=== PATIENT | female | born 1955 | race Caucasian/White ===

== ENCOUNTER 2020-06-26 07:47 | Outpatient (REF) | payer MEDICARE, SELFPAY ==
--- NOTE | ~2020-06-26 | US_ITS ---
EXAMINATION: US ABDOMEN COMPLETE CLINICAL INFORMATION: Right upper quadrant pain. COMPARISON: CT abdomen and pelvis 09/25/2017. TECHNIQUE: Real-time imaging of the abdominal viscera. FINDINGS: PANCREAS: The head and body of pancreas is homogeneous in echotexture. The tail is obscured by overlying gas. ABDOMINAL AORTA: The proximal, mid, and distal segments are normal in caliber. INFERIOR VENA CAVA: Visualized portions are normal. LIVER: The liver is normal in size. The liver contour is normal. There is diffuse increased echogenicity. No focal hepatic lesion. There is no intrahepatic biliary duct dilatation seen. GALLBLADDER: The gallbladder is physiologically distended. Multiple mobile gallstones are present. No evidence of gallbladder wall thickening or pericholecystic fluid. COMMON BILE DUCT: Normal in caliber measuring 0.5 cm in diameter. RIGHT KIDNEY: Normal. No hydronephrosis. No renal calculi or focal parenchymal lesions. The kidney measures 10.0 cm in maximum dimension. LEFT KIDNEY: Normal. No hydronephrosis. No renal calculi or focal parenchymal lesions. The kidney measures 10.2 cm in maximum dimension. SPLEEN: Normal. The spleen measures 9.0 cm in maximum dimension. FREE FLUID: None. US/US abdomen complete IMPRESSION: Diffusely echogenic liver without focal lesion. The rest of the abdominal ultrasound is unremarkable.
== END 2020-06-26 07:48 | disposition home or self-care (01) ==
LOC: HO.US 07:47
PROVIDERS: Visit Provider Nurse Practitioner Primary Care
DX: R10.11 Right upper quadrant pain (principal)
CPT/HCPCS: 76700

== ENCOUNTER 2021-01-04 08:49 | Outpatient (REF) | payer MEDICARE, SELFPAY ==
--- NOTE | ~2021-01-04 | MM_ITS ---
EXAMINATION: MM SCREENING DIGITAL BREAST TOMOSYNTHESIS, BILATERAL CLINICAL INFORMATION: Screening. Asymptomatic. The lifetime risk of breast cancer based on the Tyrer-Cuzick Model is 8%. COMPARISON: Mammography: 12/30/2019, 12/24/2018, 11/25/2017 TECHNIQUE: Digital breast tomosynthesis is performed in both the craniocaudal and mediolateral oblique views along with computer-aided detection (CAD). Synthesized 2D images are generated from the tomosynthesis. FINDINGS: There are scattered areas of fibroglandular density (ACR BI-RADS breast composition Category b). There are no significant masses, abnormal calcifications, or other abnormalities. Breast tissue composition borders on heterogeneously dense. Parenchymal pattern is similar to prior studies. No significant changes. MM/MM tomosynthesis screening BI IMPRESSION: No mammographic evidence of malignancy. ASSESSMENT: BI-RADS 1: Negative RECOMMENDATION: Routine annual mammography screening. This patient's information was entered into a reminder system with a target due date for their next mammogram.
== END 2021-01-04 08:50 | disposition home or self-care (01) ==
LOC: HO.MAMMO 08:49
PROVIDERS: Visit Provider Emergency Medicine
DX: Z12.31 Encounter for screening mammogram for malignant neoplasm of breast (principal)
CPT/HCPCS: 77063; 77067

== ENCOUNTER 2022-01-09 09:47 | Outpatient (REF) | payer MEDICARE, SELFPAY ==
--- NOTE | ~2022-01-09 | MM_ITS ---
EXAMINATION: MM SCREENING DIGITAL BREAST TOMOSYNTHESIS, BILATERAL CLINICAL INFORMATION: Screening. Asymptomatic. The lifetime risk of breast cancer based on the Tyrer-Cuzick Model is 9%. COMPARISON: Mammography: 01/04/2021, 12/30/2019, 12/24/2018, 11/25/2017. TECHNIQUE: Digital breast tomosynthesis is performed in both the craniocaudal and mediolateral oblique views along with computer-aided detection (CAD). Synthesized 2D images are generated from the tomosynthesis. FINDINGS: There are scattered areas of fibroglandular density (ACR BI-RADS breast composition Category b). Parenchymal pattern is similar to prior studies. Breast tissue composition borders on heterogeneously dense in the anterior breasts. There are no significant masses, abnormal calcifications, or other abnormalities. Parenchymal asymmetry mid upper inner left breast is stable from prior exams. There is no developing density or architectural abnormality. The axilla and skin contours are unremarkable. No significant changes. MM/MM tomosynthesis screening BI IMPRESSION: No mammographic evidence of malignancy. ASSESSMENT: BI-RADS 2: Benign RECOMMENDATION: Routine annual mammography screening. This patient's information was entered into a reminder system with a target due date for their next mammogram.
== END 2022-01-09 09:48 | disposition home or self-care (01) ==
LOC: HO.MAMMO 09:47
PROVIDERS: Visit Provider Emergency Medicine
DX: Z12.31 Encounter for screening mammogram for malignant neoplasm of breast (principal)
CPT/HCPCS: 77063; 77067

== ENCOUNTER 2023-02-09 15:19 | Outpatient (REF) | payer MEDICARE, SELFPAY | END 2023-02-09 15:20 | disposition home or self-care (01) | LOC: HO.MAMMO 15:19 | PROVIDERS: PCP Nurse Practitioner Primary Care; Visit Provider Nurse Practitioner Primary Care | DX: Z12.31 Encounter for screening mammogram for malignant neoplasm of breast (principal) | CPT/HCPCS: 77063; 77067 ==

== ENCOUNTER → 2023-02-09 15:30 | Outpatient (BNV) | payer MEDICARE, SELFPAY | PROVIDERS: PCP Nurse Practitioner Primary Care; Visit Provider Radiology Diagnostic Radiology | DX: Z12.31 Encounter for screening mammogram for malignant neoplasm of breast (principal) | CPT/HCPCS: 77063; 77067 ==

== ENCOUNTER 2023-04-23 09:32 | Outpatient (REF) | payer MEDICARE, SELFPAY ==
[2023-04-23 12:07] LABS: Anion Gap 14 (12-20); Blood Urea Nitrogen 11 mg/dL (9-16); Calcium 9.9 mg/dL (8.4-10.2); Carbon Dioxide 32 mmol/L (22-29); Chloride 102 mmol/L (96-108); Cholesterol 182 mg/dL (<200); Estimated Glomerular Filt Rate > 60; Glucose Random 125 mg/dL (60-115); HDL Cholesterol 78 mg/dL (>40); LDL Cholesterol Calculated 80 mg/dL (<100); Potassium 3.6 mmol/L (3.3-5.1); Sodium 144 mmol/L (135-145); Triglycerides 120 mg/dL (<150)
[2023-04-23 12:25] LABS: TSH reflex Free T4 3.36 uIU/mL (0.32-4.0)
[2023-04-23 12:40] LABS: Creatinine Urine 203.24 mg/dL; Microalbum/Creatinine Ratio Ur 2.4 ug/mg cr (<30)
== END 2023-04-23 09:33 | disposition home or self-care (01) ==
LOC: HO.HHCL 09:32
PROVIDERS: Visit Provider Nurse Practitioner Primary Care
DX: E11.69 Type 2 diabetes mellitus with other specified complication (principal); E03.9 Hypothyroidism, unspecified; E78.5 Hyperlipidemia, unspecified
CPT/HCPCS: 36415; 80048; 80061; 82043; 82570; 84443

== ENCOUNTER 2023-08-19 09:23 | Outpatient (REF) | payer MEDICARE, SELFPAY ==
--- NOTE | ~2023-08-19 | MM_ITS ---
EXAMINATION: BONE DENSITOMETRY CLINICAL INDICATION: Screening osteoporosis. COMPARISON: Previous BD dated 07/06/2019 and baseline BD dated 04/05/2015. TECHNIQUE: Using a XPlace DXA System (software version: 13.1) manufactured by [employer], dual-energy x-ray absorptiometry was performed of the lumbar spine and left hip. The images are of good technical quality. Summary results are attached. FINDINGS: LEFT FEMUR, NECK: Current: BMD 0.937 g/cm2, Z-score 0.6, T-score -0.7, normal. Prior: BMD 0.883 g/cm2. Baseline: BMD 0.922 g/cm2. LEFT FEMUR, TOTAL: Current: BMD 0.891 g/cm2, Z-score 0.2, T-score -0.9, normal, 0.1% increase from previous, 4.1% increase from baseline (<5% change is not significant). Prior: BMD 0.890 g/cm2. Baseline: BMD 0.856 g/cm2. [employer] SPINE L1-L4: Current: BMD 1.432 g/cm2, Z-score 3.3, T-score 2.1, normal, 7.1% increase from previous, 12.4% increase from baseline (<5% change is not significant). Prior: BMD 1.337 g/cm2. Baseline: BMD 1.274 g/cm2. IDENTIFIED RISK FACTORS: Early menopause, secondary osteoporosis, family history (parent hip fracture). HISTORY OF FRACTURE: None listed. MEDICATIONS: Calcium, vitamin D. MM/XR DEXA axial skeleton IMPRESSION: 1. DIAGNOSIS: Normal bone density based on the lowest T-score value of -0.9 in the total femur applying World Health Organization criteria. 2. 10-YEAR FRACTURE RISK PREDICTION, FRAX: According to the guidelines, FRAX calculation should only be performed on patients in the osteopenia bone density category. Therefore, FRAX was not performed on this patient.? 3. Treatment Recommendations: NOF guidelines recommend consideration for treatment in postmenopausal women and men age 50 and older presenting with the following: -A hip or vertebral (clinical or morphometric) fracture. -T-score less than or equal to -2.5 at the femoral neck or spine after appropriate evaluation to exclude secondary causes. -Low bone mass at the hip or spine and a 10-year fracture probability by FRAX of greater than or equal to 3% for hip fracture or greater than or equal to 20% for major osteoporotic fracture based on the [place] adapted WHO algorithm. 4. Other Recommendations: All treatment decisions require clinical judgment and consideration of individual patient factors, including patient preferences, comorbidities, previous drug use, risk factors not captured in the FRAX model (e.g. frailty, falls, vitamin D deficiency, increased bone turnover, interval significant decline in bone density) and possible under or overestimation of fracture risk by FRAX. FUTURE SCAN RECOMMENDATION: People with diagnosed cases of osteoporosis or at high risk for fracture should have regular bone mineral density tests. For patients eligible for Medicare, routine testing is allowed once every 2 years. The testing frequency can be increased to one year for patients who have rapidly progressing disease, those who are receiving or discontinuing medical therapy to restore bone mass, or have additional risk factors.
== END 2023-08-19 09:24 | disposition home or self-care (01) ==
LOC: HO.MAMMO 09:23
PROVIDERS: PCP Nurse Practitioner Primary Care; Visit Provider Nurse Practitioner Primary Care
DX: Z13.820 Encounter for screening for osteoporosis (principal); Z78.0 Asymptomatic menopausal state
CPT/HCPCS: 77080

== ENCOUNTER 2024-03-22 10:13 | Outpatient (AMB) | payer MEDICARE, SELFPAY ==
--- NOTE | 2024-03-22 10:30 | A.OFFVIS_ITS ---
Vital Signs 03/22/24 11:03 Height 5 ft 7 in Weight 188 lb BMI 29.4 BP 148/76 H Blood Pressure Location Rt brachial Position Sitting Pulse 88 Pulse Source Pulse Oximeter Pulse Oximetry (%) 98 Oxygen Delivery Method Room Air Intake Visit Reasons: Colonoscopy screening Intake Note: Vital Signs 03/22/2410:17 Height 4 ft 9 in Weight 188 lb 4.396 oz BMI 40.7 BP 148/76 H Blood Pressure Location Rt brachial Position Sitting Pulse 88 Pulse Source Pulse Oximeter Pulse Oximetry (%) 98 Oxygen Delivery Method Room Air Intake Visit Reasons: Colonoscopy Screening Intake Note: Relevant Flags or Indicators ? Requires Line Service Attendant? Y Twila presents in office today for a scheduled colonoscopy consultation. Pt reports that their last colonoscopy was approximately 8-10 years ago via [facility]. CC; No recent labs, diagnostics, or med orders placed. ? Relevant GI Sx as reported per pt? None ? Hx of any recent surgeries? None Line Service Attendant Required: Yes Line Service Attendant Services: Line Service Attendant Present Line Service Attendant Name: Janes Winston Information Interpreted: non-clinical & clinical Accompanied by: Family/Other Allergies No Known Allergies Allergy (Verified 03/22/24 10:18) PFSH Medical History High cholesterol Diabetes Surgical History (Updated 03/22/24 @ 10:24 by MELISSA Tolentino) History of colonoscopy (~2015) Family History (Updated 03/22/24 @ 10:25 by MELISSA Tolentino) SisterEsophageal cancer Colon cancer Social History (Updated 03/22/24 @ 10:25 by MELISSA Tolentino) Alcohol intake: current Alcohol intake frequency: does not drink Comment: Occasionally Patient Tobacco Use Status: Never used Tobacco Allergies No Known Allergies Allergy (Verified 03/22/24 10:30) HPI HPI Colonoscopy screening: Details: 69 year old? 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 Last colonoscopy in August of 2017 tubular adenoma found. Patient had colonoscopy with Dr. Calvert. Family history of colorectal cancer.? Patient denies any gastrointestinal symptoms in the past or at present.? Denies any personal or family history of gastrointestinal disease, colon polyps, or CRC.? Denies history of difficulty with sedation or anesthesia in the past.? Negative for history of sleep apnea.? Denies any history of cardiac, renal, pulmonary, or hepatic disease.?? No history of infectious? diseases like hepatitis A, B, C, HIV or tuberculosis.? Patient is not on any anticoagulation PFSH Surgical History Hx of cataract surgery H/O arthroscopic knee surgery H/O colonoscopy Family History (Updated 03/22/24 @ 10:32 by MELISSA Tolentino) Sister Esophageal cancer Colon cancer Review of Systems Const Denies weight gain and Denies weight loss ENT Reports no additional complaints, Denies dysphagia and Denies odynophagia Card Reports no additional complaints Resp Reports no additional complaints GI Denies abdominal pain, Denies belching, Denies melena, Denies bloating, Denies change in bowel habits, Denies dysphagia, Denies excessive flatus, Denies dyspepsia, Denies heartburn, Denies diarrhea, Denies loose stools, Denies nausea, Denies odynophagia and Denies vomiting Reports no additional complaints Musc Reports no additional complaints Neuro Reports no additional complaints Psych Reports no additional complaints Endo Reports no additional complaints Physical Exam Vital Signs: Last Vital Signs Pulse 88 03/22/24 11:03 BP 148/76 H 03/22/24 11:03 Pulse Ox 98 03/22/24 11:03 Oxygen Delivery Method Room Air 03/22/24 11:03 Const General: healthy appearing and no acute distress Nutritional Appearance: well nourished and obese Orientation/consciousness: patient oriented x3 Resp Effort & Inspection: normal respiratory effort, able to speak in complete sentences, no tracheal deviation and symmetric chest movement Auscultation: clear to auscultation bilaterally Cardio Rate: regular rate GI Inspection: Yes normal to inspection, No distended and Yes obesity Palpation (GI): Soft to palpation, not firm, nontender and No hepatosplenomegaly present Auscultation: normal bowel sounds General: Yes no CVA tenderness Back/Spine/Pelvis Back: no CVA tenderness Skin General skin exam: elasticity normal, turgor normal and dry skin Neuro General: patient oriented x3 Psych Appearance: grossly normal Mental Status: mental status grossly normal Assessment & Plan Assessment & Plan (1) Tubular adenoma of colon: Code(s): D12.6 - Benign neoplasm of colon, unspecified Category: Medical (2) Family history of colon cancer: Code(s): Z80.0 - Family history of malignant neoplasm of digestive organs Category: Medical (3) Screen for colon cancer: Code(s): Z12.11 - Encounter for screening for malignant neoplasm of colon Plan Patient denies any GI, cardiac or respiratory symptoms.? Denies any issues with anesthesia in the past.? Denies any history of sleep apnea.? No history infectious diseases in the past or present.? Not on any anticoagulation therapy.? Strong family history of CRC, personal history of tubular adenoma on last colonoscopy.? Patient denies melena, hematochezia, unintentional weight loss or ribbon like stools.? Discussed at length the pre-procedure,? prep, diet & medications as well as what to expect prior, during and after the procedure.?? Stressed the importance of good bowel prep.? Recommended the use of Vaseline or Calmoseptine OTC & baby wipes with bowel movements to promote comfort.? ?Patient verbalizes understanding and agrees to plan of care.? She was given the opportunity to ask questions and all questions answered.? We will see her after the procedure.? Medications: New polyethylene glycol 3350 (Miralax) As directed by gastroenterology department at [facility] 238 grams PO ONCE 238 grams 0RF Z12.11 - Encounter for screening for malignant neoplasm of colon bisacodyl (Dulcolax (bisacodyl)) take 4 tabs at noon the day before your colonoscopy 20 mg (4 x 5 mg) PO ONCE 1 day 4 tabs 0RF Z12.11 - Encounter for screening for malignant neoplasm of colon Coding Level of Care Code New Pt Level 3 (34978) Diagnoses Tubular adenoma of colon D12.6 Family history of colon cancer Z80.0 Screen for colon cancer Z12.11 Time Spent (min) 40 Comment 30 minutes spent with patient and additional 10 minutes spent reviewing her records
[2024-03-22 11:03] VITALS: BP 148/76; PULSE 88; O2SAT 98; BMI 29.4
== END 2024-03-22 11:24 | disposition home or self-care (01) ==
PROVIDERS: PCP Nurse Practitioner Primary Care; Visit Provider Nurse Practitioner Family
DX: D12.6 Benign neoplasm of colon, unspecified (principal); Z80.0 Family history of malignant neoplasm of digestive organs; Z12.11 Encounter for screening for malignant neoplasm of colon
CPT/HCPCS: 99203

== ENCOUNTER → 2024-03-22 10:13 | Outpatient (BNVA) | payer MEDICARE, SELFPAY | PROVIDERS: PCP Nurse Practitioner Primary Care; Visit Provider Nurse Practitioner Family | DX: Z01.818 Encounter for other preprocedural examination (principal); D12.6 Benign neoplasm of colon, unspecified; Z80.0 Family history of malignant neoplasm of digestive organs | CPT/HCPCS: 99202 ==

== ENCOUNTER 2024-04-06 13:43 | Outpatient (REF) | payer MEDICARE, SELFPAY | END 2024-04-06 13:44 | disposition home or self-care (01) | LOC: HO.MAMMO 13:43 | PROVIDERS: PCP Nurse Practitioner Primary Care; Visit Provider Nurse Practitioner Primary Care | DX: Z12.31 Encounter for screening mammogram for malignant neoplasm of breast (principal) | CPT/HCPCS: 77063; 77067 ==

== ENCOUNTER → 2024-04-06 14:15 | Outpatient (BNV) | payer MEDICARE, SELFPAY | PROVIDERS: PCP Nurse Practitioner Primary Care; Visit Provider Internal Medicine | DX: Z12.31 Encounter for screening mammogram for malignant neoplasm of breast (principal) | CPT/HCPCS: 77063; 77067 ==

== ENCOUNTER 2024-07-01 08:05 | Outpatient (REF) | payer MEDICARE, SELFPAY ==
--- OUTSIDE RECORDS SUMMARY | 2024-07-01 08:11 | XMS_ITS | Encounter Summary ---
Author Organization [employer] Address [address] [facility] 7t [place] [address] Care Team Providers Care Proc Tech Name Role Phone Ingris Tompkins Primary Care Provider [phone] Encounter Details Date Type Department Care Team (Late st Contact Info) Description 09/08/2022 Orders Only [facility] CHC MED & PEDS [address] [place], [place] [phone] Aimee Ocampo LPN Social History Tobacco Use [...] Description 07/07/2024 9:15 AM EDT Office Visit [facility] MEDICINE [address] [place] [address] Ingris Tompkins ANP [address] [place] [address] documented as of this encounter Visit Diagnoses Not on filedocumented in this encounter Care Teams Proc Tech Relationship Specialty Start Date End Date Ingris Tompkins ANP [address] [place] [address] PCP - General Family Medicine 04/16/20 documented as of this encounter
--- OUTSIDE RECORDS SUMMARY | 2024-07-01 08:12 | XMS_ITS | Encounter Summary ---
Author Organization [employer] Address [address] [facility] 7t [place] [address] Care Team Providers Care Calculus Tutor Name Role Phone Ingris Tompkins Primary Care Provider [phone] Reason for Visit * Reason Comments Med Refill Encounter Details Date Type Department Care Team (Late st Contact Info) Description 12/05/2022 Refill [facility] CHC MED & PEDS [address] [place], [place] [phone] Ingris Tompkins ANP [address] [place], [place] [phone] Hypothyroidism, unspecified type Social History Tobacco Use [...] Description 07/07/2024 9:15 AM EDT Office Visit [facility] MEDICINE [address] [place], [place] [phone] Ingris Tompkins ANP [address] [place], [place] [phone] documented as of this encounter Visit Diagnoses Diagnosis Hypothyroidism, unspecified type documented in this encounter Care Teams Calculus Tutor Relationship Specialty Start Date End Date Ingris Tompkins ANP [address] [place] [address] PCP - General Family Medicine 04/16/20 documented as of this encounter
--- OUTSIDE RECORDS SUMMARY | 2024-07-01 08:12 | XMS_ITS | Encounter Summary ---
Author Organization [employer] Address [address] [facility] 7t [place] [address] Care Team Providers Care Foundation Relations Manager Name Role Phone Ingris Tompkins Primary Care Provider [phone] Reason for Visit * Reason Comments Med Refill Encounter Details Date Type Department Care Team (Late st Contact Info) Description 01/08/2023 Refill [facility] CHC MED & PEDS [address] [place], [place] [phone] Heather Garcias MD [address] [place], [place] [phone] Primary hypertension Social History Tobacco Use Types [...] Description 07/07/2024 9:15 AM EDT Office Visit [facility] MEDICINE [address] [place], [place] [phone] Ingris Tompkins ANP [address] [place], [place] [phone] documented as of this encounter Visit Diagnoses Diagnosis Primary hypertension Unspecified essential hypertension documented in this encounter Care Teams Foundation Relations Manager Relationship Specialty Start Date End Date Ingris Tompkins ANP [address] [place] [address] PCP - General Family Medicine 04/16/20 documented as of this encounter
--- OUTSIDE RECORDS SUMMARY | 2024-07-01 08:12 | XMS_ITS | Encounter Summary ---
Author Organization [employer] [facility] Address [address] [facility] 7t [place] [address] Care Team Providers Care Tangled Yarn Spool Straightener Name Role Phone Ingris Tompkins Primary Care Provider [phone] Encounter Details Date Type Department Care Team (Latest Contact Info) Description 05/04/2019 Abstract [facility] Dental, Provider, DDS Social History Tobacco [...] Description 07/07/2024 9:15 AM EDT Office Visit [facility] 230 [place] [address] Ingris Tompkins ANP 230 [place] [address] documented as of this encounter Visit Diagnoses Not on filedocumented in this encounter Care Teams Tangled Yarn Spool Straightener Relationship Specialty Start Date End Date Ingris Tompkins ANP 230 [place] [address] PCP - General Family Medicine 04/16/20 documented as of this encounter
--- OUTSIDE RECORDS SUMMARY | 2024-07-01 08:12 | XMS_ITS | Encounter Summary ---
Author Organization [facility] Address [address] [facility] 7t [place] [address] Care Team Providers Care Auto Mechanics Instructor Name Role Phone Ingris Tompkins Primary Care Provider [phone] Encounter Details Date Type Department Care Team (Latest Contact Info) Description 07/30/2018 Abstract [facility] Dental, Provider, DDS Social History Tobacco [...] 9:15 AM EDT Office Visit [facility] MEDICINE 230 [place] [address] Ingris Tompkins ANP [address] [place] [address] documented as of this encounter Visit Diagnoses Not on filedocumented in this encounter Care Teams Auto Mechanics Instructor Relationship Specialty Start Date End Date Ingris Tompkins ANP [address] [place] [address] PCP - General Family Medicine 04/16/20 documented as of this encounter
--- OUTSIDE RECORDS SUMMARY | 2024-07-01 08:12 | XMS_ITS | Encounter Summary ---
Author Organization [employer] [facility] Address 75 [facility] 7t [place] [address] Care Team Providers Care Knife Finisher Name Role Phone Ingris Tompkins Primary Care Provider [phone] Reason for Visit * Reason Comments Med Refill Encounter Details Date Type Department Care Team (Late st Contact Info) Description 01/29/2023 Refill [facility] MEDICINE [address] [place] [phone] Ingris Tompkins ANP [address] [place] [address] [phone] Pain Social History Tobacco Use Types Packs/Day [...] [facility] [address] [place] [phone] Ingris Tompkins ANP [address] [place] [phone] documented as of this encounter Visit Diagnoses Diagnosis Pain Generalized pain documented in this encounter Care Teams Knife Finisher Relationship Specialty Start Date End Date Ingris Tompkins ANP 230 [place] [address] PCP - General Family Medicine 04/16/20 documented as of this encounter
--- OUTSIDE RECORDS SUMMARY | 2024-07-01 08:12 | XMS_ITS | Encounter Summary ---
Author Organization [employer] Address [address] [facility] 7t [place] [address] Care Team Providers Care Financial Institution Manager Name Role Phone Ingris Tompkins Primary Care Provider [phone] Reason for Visit * Reason Comments Med Refill Encounter Details Date Type Department Care Team ([facility] st Contact Info) Description 06/25/2024 Refill [facility] CHC MED & PEDS [address] [place], [place] [phone] Ingris Tompkins ANP 230 [facility] [place], [place] [phone] Hyperglycemia Social History Tobacco Use Types Packs/Day Years Used Date Smoking Tobacco: Never Passive Smoke Exposure: Never Smokeless Tobacco: Never Alcohol Use Standard Drinks/Week Comments Not Currently [...] the past 12 months, has t he [employer], [employer], oil or water company threatened to shut [...] Description 07/07/2024 9:15 AM EDT Office Visit [facility] MEDICINE 230 [place] [address] Ingris Tompkins ANP 230 [place] [address] documented as of this encounter Visit Diagnoses Diagnosis Hyperglycemia Other abnormal glucose documented in this encounter Care Teams Financial Institution Manager Relationship Specialty Start Date End Date Ingris Tompkins ANP [address] [place] [address] PCP - General Family Medicine 04/16/20 documented as of this encounter
--- OUTSIDE RECORDS SUMMARY | 2024-07-01 08:12 | XMS_ITS | Encounter Summary ---
Author Organization [employer] Address [address] [facility] 7t [place] [address] Care Team Providers Care International Accounting Manager Name Role Phone Ingris Tompkins Primary Care Provider [phone] Reason for Visit * Reason Comments Med Refill Encounter Details Date Type Department Care Team ([facility] st Contact Info) Description 06/30/2024 Refill [facility] CHC MED & PEDS [address] [place], [place] [phone] Ingris Tompkins ANP 230 [facility] [place], [place] [phone] Pain; Hypothyroidism, unspecified type Social History Tobacco Use [...] t he electric, gas, oil or water [employer] threatened to shut off services in your [...] Description 07/07/2024 9:15 AM EDT Office Visit [facility] MEDICINE [address] [place] [phone] Ingris Tompkins ANP [address] [place] [address] documented as of this encounter Visit Diagnoses Diagnosis Pain Generalized pain Hypothyroidism, unspecified type documented in this encounter Care Teams International Accounting Manager Relationship Specialty Start Date End Date Ingris Tompkins ANP [address] [place] [address] PCP - General Family Medicine 04/16/20 documented as of this encounter
--- OUTSIDE RECORDS SUMMARY | 2024-07-01 08:12 | XMS_ITS | Encounter Summary ---
Author Organization [employer] Address [address] [facility] 7t [place] [address] Care Team Providers Care Salon Leader Name Role Phone Ingris Tompkins Primary Care Provider [phone] Encounter Details Date Type Department Care Team (Late st Contact Info) Description 10/06/2022 Orders Only [facility] CH[facility] MED & PEDS [address] [place], [place] [phone] Aimee Ocampo LPN Social History Tobacco Use [...] 9:15 AM EDT Office Visit [facility] 230 [place] [address] Ingris Tompkins ANP [address] [place] [address] documented as of this encounter Visit Diagnoses Not on filedocumented in this encounter Care Teams Salon Leader Relationship Specialty Start Date End Date Ingris Tompkins ANP [address] [place] [address] PCP - General Family Medicine 04/16/20 documented as of this encounter
--- OUTSIDE RECORDS SUMMARY | 2024-07-01 08:12 | XMS_ITS | Clinical Summary ---
Author Organization [employer] Address [address] [facility] 7t [place] [address] Care Team Providers Care Geospatial Specialist Name Role Phone Clarisse Tucker KAREN Primary Care Provider [phone] Allergies No known active allergies Medications Blood Glucose Monitoring Suppl (FreeStyle Lite) w/Device kitIndications:H ypertension associated with diabetes (CMS/HCC) ([facility]) 1 each 3 times daily. 1 kit 05/26/19 24 Active Easy Touch Lancets 33G/Twist miscIndications: Type 2 diabetes mellitus without complication, unspecified whether jail insulin use ([facility]) USE DIRECTED NEEDED TO CHECK BLOOD SUGAR 100 each 11 07/28/19 24 Active psyllium (Metamucil Smooth Texture) 58.6 % powder Take 5.12 g (3 g of fiber) by mouth 2 times daily. 283 g 11 09/05/19 24 025 Active atorvastatin (Lipitor) 40 MG tablet TAKE 1 TABLET BY MOUTH AT BEDTIME 90 tablet 3 09/22/19 24 Active Calcium + Vitamin D3 600-5 MG-MCG tablet TAKE 1 TABLET BY MOUTH TWICE DAILY IN THE MORNING AND IN THE EVENING 180 tablet 3 09/22/19 24 Active hydroCHLOROthiaz ninoska (HYDRODiuril) 25 MG tabletIndication s:Primary hypertension TAKE 1 TABLET BY MOUTH EVERY MORNING 90 tablet 3 09/22/19 24 Active verapamil SR (Calan SR) 240 MG ER tabletIndication s:Primary hypertension TAKE 1 TABLET BY MOUTH EVERY MORNING WITH FOOD 90 tablet 3 09/22/19 24 Active metFORMIN (Glucophage) 1000 MG tabletIndication s:Type 2 diabetes mellitus without complication, unspecified whether terminal worker insulin use (CMS/HCC) TAKE 1 TABLET BY MOUTH TWICE DAILY IN THE MORNING AND IN THE EVENING WITH MEALS 180 tablet 3 09/22/19 24 Active glimepiride (Amaryl) 1 MG tablet TAKE 1 TABLET BY MOUTH TWICE DAILY IN THE MORNING AND IN THE EVENING 180 tablet 3 10/30/19 24 Active olmesartan (Benicar) 40 MG tabletIndication s:Hypertension associated with diabetes (CMS/HCC) ([facility]) Take 1 tablet (40 mg) by mouth Once per day. 90 tablet 3 11/05/19 24 025 Active FREESTYLE LITE test stripIndications :Hyperglycemia TEST BLOOD SUGAR UP TO TWICE DAILY NEEDED 50 strip 5 06/28/19 25 Active gabapentin (Neurontin) 300 MG capsuleIndicatio ns:Pain TAKE 1 CAPSULE BY MOUTH AT BEDTIME 30 capsule 3 07/01/19 25 Active levothyroxine (Synthroid, Levoxyl) 50 MCG tabletIndication s:Hypothyroidism , unspecified type TAKE 1 TABLET BY MOUTH EVERY MORNING 6 DAYS PER WEEK AND TAKE 2 TABLETS BY MOUTH ONCE WEEKLY 36 tablet 2 07/01/19 25 Active FREESTYLE LITE test stripIndications :Hyperglycemia TEST BLOOD SUGAR UP TO TWICE DAILY NEEDED 50 strip 5 12/14/19 24 025 Discontinued gabapentin (Neurontin) 300 MG capsuleIndicatio ns:Pain TAKE 1 CAPSULE BY MOUTH AT BEDTIME 30 capsule 3 02/22/20 24 025 Discontinued levothyroxine (Synthroid, Levoxyl) 50 MCG tabletIndication s:Hypothyroidism , unspecified type TAKE 1 TABLET BY MOUTH EVERY MORNING 6 DAYS PER WEEK AND TAKE 2 TABLETS BY MOUTH ONCE WEEKLY 36 tablet 2 03/23/20 24 025 Discontinued Active Problems Problem Noted Date Diagnosed Date Hypertension associated with diabetes ([facility]/HCC) 05/26/2023 Dyslipidemia 02/19/2018 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 anxiety and depressive disorder 02/26/2012 Acquired hypothyroidism 04/27/1959 Essential hypertension 04/27/1959 Type 2 diabetes mellitus with hyperlipidemia (CM S/HCC) 04/27/1959 Hyperlipidemia 04/27/1959 Knee pain 04/27/1959 Encounters Date Type Department Care Team Description 06/30/2024 Refill [facility] MED & PEDS [address] [place] [address] Clarisse Tucker ANP Pain; Hypothyroidism, unspecified type 06/25/2024 Refill [facility] CHC MED & PEDS [address] [place] [address] Clarisse Tucker ANP Hyperglycemia 05/04/2024 Telephone [facility] MEDICINE [address] [place] [phone] Jo Miranda [place] DME from [facility] 05/04/2024 Patient Outreach [address] [address] Clarisse Tucker ANP Pre-visit Planning (SDOH screening was completed on 10/27/2023) 04/06/2024 Orders Only [facility] MEDICINE [address] [place] [phone] Clarisse Tucker ANP from Last 3 Months Immunizations Name Administration [...] Description 07/07/2024 9:15 AM EDT Office Visit [facility] MEDICINE [address] [place] [address] Clarisse Tucker, ANP [address] [place] [address] Health Maintenance Due Date Last Done Comments [...] Tobacco Screening 02/04/2025 02/05/2024 Mammogram 04/06/2025 04/06/2024, 1204/2023, 02/09/2023, Additional history exists Eye Exam 12/26/2025 [...] EST Narrative 04/13/2024 10:30 AM EST ? [facility] ? [address] ?[place] [address] ? Mammography Report ? Signed ? Patient: Silva Jose,Twila L ?MR#: ?? [id number] ? : 1955 ?Acct:[id number] ? Age/Sex: 69 / F ?ADM Date: 04/06/24 ? Loc: HO.MAMMO ? Attending Dr: Clarisse Tucker [employer] POWER PLANT OPERATOR ? Ordering Physician: CLARISSE TUCKER NP ?Results: 1Negative ? Date of Service: 04/06/24 ?Follow Up: 1 Year From Orig ?? inal Mammogram ? Procedure(s): MM tomosynthesis screening BI ?? Accession Number(s): [id number] ? cc: GARRETT,CLARISSE JOHNSON ? EXAMINATION: ?? MM SCREENING DIGITAL BREAST [...] ??Laure Singh DO ??04/13/2024 10:27 AM EST ? Dictated By: ?Laure Singh DO ? Signed By: ?<Electronically signed by Laure Singh, DO in OV> ? 04/13/24 1027 ? DD/ 1415 ? TD/TT: 04/06/24 1420 ? Stave Cutter: ? Procedure Note [place] - 04/13/2024 [facility] [address] [place] [address] Mammography Report Signed Patient: Twila Salazar LMR#: [id number] : 4Acct:[id number] Age/Sex: 69 / FADM Date: 04/06/24 Loc: HO.MAMMO Attending Dr: Clarisse Tucker NP Ordering Physician: CLARISSE TUCKEResults: 1Negative Date of Service: 04/06/24Follow Up: 1 Year From Orig ina Mammogram Procedure(s): MM tomosynthesis screening BI Accession Number(s): [id number] cc: CLARISSE TUCKER NP EXAMINATION: MM SCREENING [...] by: Laure Singh DO 04/13/2024 10:27 AM EST Dictated By: Laure Singh DO Signed By: <Electronically signed by Laure Singh DO in OV> 04/13/24 1027 DD/ 1415 TD/TT: 04/06/24 1420 Stave Cutter: us Clarisse Tucker ANP IMG BI PROCEDURES Edited Result - Final * (ABNORMAL) POCT HGB A1C (02/05/2024 10:14 AM EDT) Hemoglobin A1C 6.3(A) 4.0 - 6.0 % QC Media Lot # [id number] Lot# Expiration Date Blood 02/05/2024 10:1 4 AM EDT us Clarisse JONES POINT OF CARE TEST ENTER/EDIT OR DERABLES Edited Result - Final * Albumin, Random Urine W/Creatinine (04/23/2023 9:35 AM EST) Creatinine, Urine 203.24 mg/dL [facility] Microalbumin Urine 5.0 mg/L [facility] Microalbum Creatinine Ratio Ur 2.4 <30 ug/mg cr [facility] Comment:Albumin/Creatinine R atio Reference Ranges: Normal: < 30 ug/mg creatinine Microalbuminuria: 30 - 300 ug/mg creatinineClinical Albuminuria: > 300 ug/mg creatinine Urine 04/23/2023 9:35 AM EST 04/23/2023 11:26 AM EST Clarisse Tucker ANP LAB URINE ORDERABLES Final Resul t Performing Organization Address [facility] Co de Phone Number [facility] [address] [place] [address] [phone] * Lipid Panel, Standard (04/23/2023 9:33 AM EST) Triglycerides 120 <150 mg/dL [facility] Comment:Desirable Triglyceri de: less than 150 mg/dLBorderline High Triglyceride 150-199 mg/dLHigh Triglyceride: 200-499 mg/dLVery High Triglyceride: greater than or equal to 5OO mg/dL Cholesterol 182 <200 mg/dL [facility] Comment:Desirable Cholestero l: less than 200 mg/dLBorderline High Cholesterol: 200-239 mg/dLHigh Cholesterol: greater than 239 mg/dL LDL Cholesterol Calculated 80 <100 mg/dL [facility] Comment:Desirable LDL: less than 100 mg/dLNear Optimal/Above Optimal LDL: 110- 129 mg/dLBorderline High LDL: 130-159 mg/dLHigh LDL: 160-189 mg/dLVery High LDL: greater than or equal to 190 mg/dL HDL Cholesterol 78 >40 mg/dL [facility] Comment:Desirable HDL: great er than 40 mg/dL Note: This HDL assay may give artificially low results in patients with liver disease. Blood Venous blood specimen / Unknown 04/23/2023 9:33 AM EST 04/23/2023 11:02 AM EST Clarisse Tucker ANP LAB BLOOD ORDERABLES Final Resul t Performing Organization Address [facility]/ZIP Co de Phone Number [facility] [address] [place] [address] [phone] * (ABNORMAL) Hm Colonoscopy (09/17/2017) Colonoscopy Abnormal(A ) Normal Historical Provider HEALTH MAINTENANCE Edited Result - Final from Last 3 Months or Most Recently Relevant to Health Maintenance Insurance [facility] [address] [place] [address] [place] [address] [place] [phone] Care Teams Geospatial Specialist Relationship Specialty Start Date End Date Clarisse Tucker ANP [address] [place] [phone] PCP - General Family Medicine 04/16/20
--- OUTSIDE RECORDS SUMMARY | 2024-07-01 08:12 | XMS_ITS | Encounter Summary ---
Author Organization [employer] Address [address] [facility] 7t [place] [address] Care Team Providers Care Zoning Engineer Name Role Phone Ingris Tompkins Primary Care Provider [phone] Encounter Details Date Type Department Care Team (Late st Contact Info) Description 05/13/2022 Orders Only [facility] CHC MED & PEDS [address] [place], [place] [phone] Aimee Ocampo LPN Social History Tobacco Use [...] Description 07/07/2024 9:15 AM EDT Office Visit [facility] MEDICINE [address] [place], [place] [phone] Ingris Tompkins ANP [address] [place], [place] [phone] documented as of this encounter Visit Diagnoses Not on filedocumented in this encounter Care Teams Zoning Engineer Relationship Specialty Start Date End Date Ingris Tompkins ANP [address] [place] [address] PCP - General Family Medicine 04/16/20 documented as of this encounter
[2024-07-01 11:58] LABS: Alanine Aminotransferase 20 U/L (0-31); Albumin Level 4.2 g/dL (3.5-5.0); Alkaline Phosphatase 43 U/L (39-117); Anion Gap 13 (12-20); Aspartate Amino Transferase 25 U/L (5-31); Bilirubin Direct 0.2 mg/dL (0.0-0.5); Bilirubin Total 0.5 mg/dL (0.0-1.0); Blood Urea Nitrogen 16 mg/dL (9-16); Calcium 9.5 mg/dL (8.4-10.2); Carbon Dioxide 26 mmol/L (22-29); Chloride 105 mmol/L (96-108); Estimated Glomerular Filt Rate > 60; Glucose Random 125 mg/dL (60-115); Potassium 3.5 mmol/L (3.3-5.1); Sodium 140 mmol/L (135-145); Total Protein 7.6 g/dL (6.5-8.0)
== END 2024-07-01 08:06 | disposition home or self-care (01) ==
LOC: HO.HHCL 08:05
PROVIDERS: Visit Provider Nurse Practitioner Primary Care
DX: E11.59 Type 2 diabetes mellitus with other circulatory complications (principal); I25.2 Old myocardial infarction; E78.5 Hyperlipidemia, unspecified
CPT/HCPCS: 36415; 80048; 80076

== ENCOUNTER 2024-08-05 09:39 | Day surgery (SDC) | payer OTHER, SELFPAY ==
--- OUTSIDE RECORDS SUMMARY | 2024-06-21 07:22 | XMS_ITS | Encounter Summary ---
Author Organization [employer] Address [address] [place] [address] Care Team Providers Care Claims Adjuster Name Role Phone Ingris Tompkins Primary Care Provider [phone] Encounter Details Date Type Department Care Team (Late st Contact Info) Description 05/13/[address] [facility] [address] [place], [place] [phone] Aimee Ocampo LPN Social History Tobacco Use Types Packs/Day Years Used Date Smoking Tobacco: Never Passive Smoke Exposure: Never Smokeless Tobacco: Never Alcohol Use Standard Drinks/Week Comments Never 0 (1 standard drink = 0.6 oz pur e alcohol) Comments Unknown Sex and Gender Information Value Date Recorded Sex Assigned at Female 02/24/2022 10:20 AM EDT Legal Sex Female 10:20 AM EDT Gender Identity Female 02/24/2022 10:20 AM EDT Sexual Orientation Straight 02/24/2022 10 :20 AM EDT COVID-19 Exposure Response Date Recorded In the last 10 days, have yo u been in contact with someone who was confirmed or suspected to have Coronavirus/COVID-19? No / Unsure 04/15/2022 11:09 AM EST documented as of this encounter Plan of Treatment Upcoming Encounters Date Type Department Care Team (Late st Contact Info) Description 07/07/2024 9:15 AM EDT Office Visit [facility] [address] [place], [place] [phone] Ingris Tompkins ANP [address] [place], [place] [phone] documented as of this encounter Visit Diagnoses Not on filedocumented in this encounter Care Teams Claims Adjuster Relationship Specialty Start Date End Date Ingris Tompkins ANP [address] [place] [address] PCP - General Family Medicine 04/16/20 documented as of this encounter
--- OUTSIDE RECORDS SUMMARY | 2024-06-21 07:22 | XMS_ITS | Clinical Summary ---
Author Organization [email or web address] Address [address] [facility] 7t [place] [address] Care Team Providers Care Drying Room Operator Name Role Phone Clarisse Tucker KAREN Primary Care Provider [phone] Allergies No known active allergies Medications Blood Glucose Monitoring Suppl (FreeStyle Lite) w/Device kitIndications:Hy pertension associated with diabetes (CMS/HCC) ([facility]) 1 each 3 times daily. 1 kit 4 Active Easy Touch Lancets 33G/Twist miscIndications:T ype 2 diabetes mellitus without complication, unspecified whether bed bug exterminator insulin use (CMS/[facility]) USE DIRECTED NEEDED TO CHECK BLOOD SUGAR 100 each 11 4 Active psyllium (Metamucil Smooth Texture) 58.6 % powder Take 5.12 g (3 g of fiber) by mouth 2 times daily. 283 g 11 4 09/05/19 25 Active atorvastatin (Lipitor) 40 MG tablet TAKE 1 TABLET BY MOUTH AT BEDTIME 90 tablet 3 4 Active Calcium + Vitamin D3 600-5 MG-MCG tablet TAKE 1 TABLET BY MOUTH TWICE DAILY IN THE MORNING AND IN THE EVENING 180 tablet 3 4 Active hydroCHLOROthiazi de (HYDRODiuril) 25 MG tabletIndications :Primary hypertension TAKE 1 TABLET BY MOUTH EVERY MORNING 90 tablet 3 4 Active verapamil SR (Calan SR) 240 MG ER tabletIndications :Primary hypertension TAKE 1 TABLET BY MOUTH EVERY MORNING WITH FOOD 90 tablet 3 4 Active metFORMIN (Glucophage) 1000 MG tabletIndications :Type 2 diabetes mellitus without complication, unspecified whether long-term insulin use (CMS/[facility]) TAKE 1 TABLET BY MOUTH TWICE DAILY IN THE MORNING AND IN THE EVENING WITH MEALS 180 tablet 3 4 Active glimepiride (Amaryl) 1 MG tablet TAKE 1 TABLET BY MOUTH TWICE DAILY IN THE MORNING AND IN THE EVENING 180 tablet 3 4 Active olmesartan (Benicar) 40 MG tabletIndications :Hypertension associated with diabetes (CMS/HCC) (CMS/HCC) Take 1 tablet (40 mg) by mouth Once per day. 90 tablet 3 4 11/05/19 25 Active FREESTYLE LITE test stripIndications: Hyperglycemia TEST BLOOD SUGAR UP TO TWICE DAILY NEEDED 50 strip 5 4 Active gabapentin (Neurontin) 300 MG capsuleIndication s:Pain TAKE 1 CAPSULE BY MOUTH AT BEDTIME 30 capsule 3 4 Active levothyroxine (Synthroid, Levoxyl) 50 MCG tabletIndications :Hypothyroidism, unspecified type TAKE 1 TABLET BY MOUTH EVERY MORNING 6 DAYS PER WEEK AND TAKE 2 TABLETS BY MOUTH ONCE WEEKLY 36 tablet 2 4 Active Active Problems Problem Noted Date Diagnosed Date Hypertension associated with diabetes (CMS/HCC) 05/26/2023 Dyslipidemia 02/19/2018 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 anxiety and depressive disorder 02/26/2012 Acquired hypothyroidism 04/27/1959 Essential hypertension 04/27/1959 Type 2 diabetes mellitus with hyperlipidemia (CM S/HCC) 04/27/1959 Hyperlipidemia 04/27/1959 Knee pain 04/27/1959 Encounters Date Type Department Care Team Description 05/04/2024 Telephone [facility] [address] [place] [phone] Jo Miranda MA DME from [facility] 05/04/2024 Patient Outreach [facility] [address] [place] [address] Clarisse Tucker ANP Pre-visit Planning ([facility] screening was completed on 10/27/2023) 04/06/2024 Orders Only [facility] [address] [place] [address] Clarisse Tucker ANP 03/23/2024 Refill [facility] [address] [place] [address] Clarisse Tucker ANP Hypothyroidism, unspecified type 03/21/2024 Telephone [facility] [address] [place], [place] [phone] Jo Miranda MA April recall from Last 3 Months Immunizations Name Administration Dates Next Due Hep B, adult 02/19/2018 Influenza Injectable Quadriv alant Preservative Free IIV4 MDCK 03/27/2021 Influenza injectable quadriv alent IIV4 with preservative 02/19/2018 Influenza injectable quadrivalent preservative f ree 05/26/2023,04/15/2022 Influenza, High Dose Seasonal, Preservative Free 06/22/2019 Influenza, IIV3, injectable 01/14/2010 Influenza, Split (incl. purified surface antigen ) 02/26/2012 Moderna Covid-19 Vaccine 6+ Bivalent 04/15/2022 Pfizer Covid-19 Vaccine 12+ 05/26/2023 Pneumococcal Conjugate PCV 20 09/23/2022 Pneumococcal Polysaccharide PPSV23 10/31/2008 Pneumococcal, Unspecified 10/31/2008 TD (adult), 2 Lf tetanus tox oid, preservative free, adsorbed 10/31/2008 Tdap 05/04/2017 Zoster, live 02/19/2018 Family History Medical History Relation Name Comments Cancer Brother colon Cancer Sister colon Relation Name Status Comments Brother Sister Social History Tobacco Use Types Packs/Day Years Used Date Smoking Tobacco: Never Passive Smoke Exposure: Never Smokeless Tobacco: Never Tobacco Cessation:Counseling Given: Not Answered Alcohol Use Standard Drinks/Week Comments Not Currently 0 (1 standard drink = 0.6 oz pur e alcohol) Housing Stability Answer Date Recorded What is your housing situation today? I have barbie ponce 10/27/[address] you li ve. Do you have problems with any of the following? None of the above 10/27/2023 Food Insecurity Answer Date Recorded Within the past 12 months, y ou worried that your food would run out before you got money to buy more: Never True 10/27/2023 Within the past 12 months,th e food you bought just didn't last and you didn't have enough money to get more: Never True 05/2023 Transportation Answer Date Recorded In the past 12 months, has l ack of transportation kept you from medical appts, meetings, work or from getting things needed for daily living? No 10/27/2023 Utilities Answer Date Recorded In the past 12 months, has t he electric, gas, oil or water company threatened to shut off services in your home? No 10/27/2023 Depression Answer Date Recorded Patient Health Questionnaire-2 Score 0 09/23/2022 Internet Access Answer Date Recorded Internet Access Q1 Yes 12/28/2023 Internet Access Q2 Not on file 12/28/2023 Comments No Sex and Gender Information Value Date Recorded Sex Assigned at Female 02/24/2022 10:20 AM EDT Legal Sex Female 10:20 AM EDT Gender Identity Female 02/24/2022 10:20 AM EDT Sexual Orientation Straight 02/24/2022 10 :20 AM EDT Last Filed Vital Signs Vital Sign Reading Time Taken Comments Blood Pressure 170/72 02/05/2024 10:15 AM EDT Pulse 76 02/05/2024 9:46 AM EDT Temperature 36.6 ??C (97.8 ??F) 02/05/2024 9:46 AM ED T Respiratory Rate 20 02/05/2024 9:46 AM EDT Oxygen Saturation 98% 02/05/2024 9:46 AM EDT Inhaled Oxygen Concentration - - Weight 80.9 kg (178 lb 6.4 oz) 02/05/2024 9:46 A M EDT Height 167.6 cm (5' 6 ) 02/05/2024 9:46 AM EDT Body Mass Index 28.79 02/05/2024 9:46 AM EDT Plan of Treatment Upcoming Encounters Date Type Department Care Team (Late st Contact Info) Description 07/07/2024 9:15 AM EDT Office Visit [facility] [address] [place] [address] Clarisse Tucker, KAREN [address] [place] [address] Health Maintenance Due Date Last Done Comments CT Colonography 1955 Dental Oral Exam 1955 Dental Prophylaxis 1955 Dental X-Ray: Bitewings 1954 Dental X-Ray: Full Mouth 1955 FIT DNA/Cologuard 1955 FIT 1955 FOBT 1955 Sigmoidoscopy 1955 Alcohol/Substance Use Screening 1966 Hepatitis C Screening 01/11/1972 Hepatitis B Vaccines (2 of 3 - 19+ 3-dose series) 03/19/2018 02/19/2018 Zoster Vaccines (2 of 3) 04/16/2018 02/19/2018 Colonoscopy 09/17/2022 09/17/2017 Colorectal Cancer Screening 09/17/2022 Depression Screening 09/24/2023 09/23/2022, 09/24/19 23 COVID-19 Vaccine ( season) 2023 05/26/2023, 04/15/2022, 07/24/2020, Additional history exists Influenza Vaccine (#1) 2023 , 04/15/2022, 03/27/2021, Additional history exists Diabetes: Urine Protein Screening 04/23/2024 04/23/2023, 08/23/2021, 06/28/2020, Additional history exists Lipid Panel 04/23/2024 04/23/2023, 07/27, 06/28/2020 Diabetes: Hemoglobin A1C 05/07/2024 024, 11/05/2023, 04/09/2023, Additional history exists SDOH Screening 10/26/2024 10/27/2023 Diabetes: Foot Exam 11/04/2024 11/05/2023, 11/05/2023, 11/05/2023, Additional history exists Tobacco Screening 02/04/2025 02/05/2024 Mammogram 04/06/2025 04/06/2024, 03/27, 02/09/2023, Additional history exists Eye Exam 12/26/2025 12/27/2023 DTaP/Tdap/Td Vaccines (2 - Td or Tdap) 05/04/2027 05/04/2017, 10/31/2008 RSV Patients and Patients Aged 60 years or older (1 - 1-dose 75+ series) 2029 Pneumococcal Vaccine: 50+ Years Completed 09/23/2022, 10/31/2008, 10/31/2008 HIB Vaccines Aged Out No longer eligi ble based on patient's age to complete this topic HPV Vaccines Aged Out No longer eligi ble based on patient's age to complete this topic Hepatitis A Vaccines Aged Out No long er eligible based on patient's age to complete this topic IPV Vaccines Aged Out No longer eligi ble based on patient's age to complete this topic Meningococcal Vaccine Aged Out No parvin eduardo eligible based on patient's age to complete this topic RSV under 20 months Aged Out No longe r eligible based on patient's age to complete this topic Rotavirus Vaccines Aged Out No longer eligible based on patient's age to complete this topic Procedures Procedure Name Priority Date/Time Associated Diagnosis Comments BI MAMMOGRAM SCREENING TOMOSYNTHESIS BILATERAL Routine 04/06/2024 2:15 PM EST POCT GLYCATED HEMOGLOBIN, TOTAL Routine 02/05/2024 10:14 AM EDT Hypertension associated with diabetes (CMS/HCC) (CMS/HCC) ALBUMIN, RANDOM URINE W/CREATININE Routine 04/23/2023 9:35 AM EST Type 2 diabetes mellitus with hyperlipidemia (CMS/HCC) LIPID PANEL, STANDARD Routine 04/23/2023 9:33 AM EST Type 2 diabetes mellitus with hyperlipidemia (CMS/HCC) HM COLONOSCOPY Routine 09/17/2017 from Last 3 Months or Most Recently Relevant to Health Maintenance Results * BI Mammogram Screening Tomosynthesis Bilateral (04/06/2024 2:15 PM EST) Anatomical Region Laterality Modality Breast Bilateral Mammography 04/06/2024 2:15 PM EST Narrative 04/13/2024 10:30 AM EST ? [facility] [place] ? [address] ?[place] [address] ? Mammography Report ? Signed ? Patient: Silva Jose,Twila L ?MR#: ?? [id number] ? : 1955 ?Acct:[id number] ? Age/Sex: 69 / F ?ADM Date: 12/11/24 ? Loc: HO.MAMMO ? Attending Dr: Clarisse Tucker REPROGRAPHICS TECHNICIAN ? Ordering Physician: CLARISSE TUCKER NP ?Results: 1Negative ? Date of Service: 04/06/24 ?Follow Up: 1 Year From Orig ?? inal Mammogram ? Procedure(s): MM tomosynthesis screening BI ?? Accession Number(s): [id number] ? cc: CLARISSE TUCKER NP ? EXAMINATION: ?? MM SCREENING DIGITAL BREAST TOMOSYNTHESIS, BILATERAL ? CLINICAL INFORMATION: ? Screening. Asymptomatic. ? COMPARISON: ?? Mammography: Comparison is made with available priors ? TECHNIQUE: ?? Digital breast mammography with tomosynthesis is performed in both the ?? craniocaudal and mediolateral oblique views along with computer-aided ?? detection (CAD). ? FINDINGS: ?? The breasts are heterogeneously dense, which may obscure small masses ?? (ACR BI-RADS breast composition Category c). ? There are no significant masses, abnormal calcifications, or other ?? abnormalities. ? MM/MM tomosynthesis screening BI ?? IMPRESSION: ?? No mammographic evidence of malignancy. ? ASSESSMENT: ? BI-RADS BI-RADS 1 - Negative ? RECOMMENDATION: ?? Routine annual mammography screening. ? 1 year F/U ? This examination should not preclude the clinical evaluation of a ?? suspicious palpable abnormality. ? This patient's information was entered into a reminder system with a ?? target due date for their next mammogram. ? Electronically signed by: ??Laure Singh DO ??04/13/2024 10:27 AM EST ?? RP ? Dictated By: ?Laure Singh DO ? Signed By: ?<Electronically signed by Laure Singh, DO in OV> ? 04/13/247 ? DD/ 1415 ? TD/TT: 04/06/24 1420 ? Park Interpreter: ? Procedure Note Donotuseinterpreter, Image - 04/13/2024 [place] [facility] [address] [place] [address] Mammography Report Signed Patient: Twila Salazar LMR#: [id number] : 1955cct:[id number] Age/Sex: 69 / FADM Date: 04/06/24 Loc: HO.MAMMO Attending Dr: Clarisse Tucker NP Ordering Physician: CLARISSE TUCKER NPResults: 1Negative Date of Service: 04/06/24Follow Up: 1 Year From Orig inal Mammogram Procedure(s): MM tomosynthesis screening BI Accession Number(s): [id number] cc: CLARISSE TUCKER NP EXAMINATION: MM SCREENING DIGITAL BREAST TOMOSYNTHESIS, BILATERAL CLINICAL INFORMATION: Screening. Asymptomatic. COMPARISON: Mammography: Comparison is made with available priors TECHNIQUE: Digital breast mammography with tomosynthesis is performed in both the craniocaudal and mediolateral oblique views along with computer-aided detection (CAD). FINDINGS: The breasts are heterogeneously dense, which may obscure small masses (ACR BI-RADS breast composition Category c). There are no significant masses, abnormal calcifications, or other abnormalities. MM/MM tomosynthesis screening BI IMPRESSION: No mammographic evidence of malignancy. ASSESSMENT: BI-RADS BI-RADS 1 - Negative RECOMMENDATION: Routine annual mammography screening. 1 year F/U This examination should not preclude the clinical evaluation of a suspicious palpable abnormality. This patient's information was entered into a reminder system with a target due date for their next mammogram. Electronically signed by: Laure Singh DO 04/13/2024 10:27 AM [facility] Dictated By: Tyminski,Laure DO Signed By: <Electronically signed by Laure Singh DO in OV> 04/13/24 1027 DD/ 1415 TD/TT: 04/06/24 1420 Park Interpreter: us Clarisse Tucker ANP IMG BI PROCEDURES Edited Result - Final * (ABNORMAL) POCT HGB A1C (02/05/2024 10:14 AM EDT) Hemoglobin A1C 6.3(A) 4.0 - 6.0 % QC Media Lot # [id number] Lot# Expiration Date Blood 02/05/2024 10:1 4 AM EDT us Clarisse Tucker ANP POINT OF CARE TEST ENTER/EDIT OR DERABLES Edited Result - Final * Albumin, Random Urine W/Creatinine (04/23/2023 9:35 AM EST) Creatinine, Urine 203.24 mg/dL [facility] Microalbumin Urine 5.0 mg/L [facility] Microalbum Creatinine Ratio Ur 2.4 <30 ug/mg cr [facility] Comment:Albumin/Creatinine R atio Reference Ranges: Normal: < 30 ug/mg creatinine Microalbuminuria: 30 - 300 ug/mg creatinineClinical Albuminuria: > 300 ug/mg creatinine Urine 04/23/2023 9:35 AM EST 04/23/2023 11:26 AM EST us Clarisse Tucker ANP LAB URINE ORDERABLES Final Resul t [facility] [address] [place] [address] [phone] * Lipid Panel, Standard (04/23/2023 9:33 AM EST) Triglycerides 120 <150 mg/dL [facility] Comment:Desirable Triglyceri de: less than 150 mg/dLBorderline High Triglyceride 150-199 mg/dLHigh Triglyceride: 200-499 mg/dLVery High Triglyceride: greater than or equal to 5OO mg/dL Cholesterol 182 <200 mg/dL [facility] Comment:Desirable Cholestero l: less than 200 mg/dLBorderline High Cholesterol: 200-239 mg/dLHigh Cholesterol: greater than 239 mg/dL LDL Cholesterol Calculated 80 <100 mg/dL [facility] Comment:Desirable LDL: less than 100 mg/dLNear Optimal/Above Optimal LDL: 110- 129 mg/dLBorderline High LDL: 130-159 mg/dLHigh LDL: 160-189 mg/dLVery High LDL: greater than or equal to 190 mg/dL HDL Cholesterol 78 >40 mg/dL [facility] Comment:Desirable HDL: great er than 40 mg/dL Note: This HDL assay may give artificially low results in patients with liver disease. Blood Venous blood specimen / Unknown 04/23/2023 9:33 AM EST 04/23/2023 11:02 AM EST [facility] LAB BLOOD ORDERABLES Final Resul t [facility] [address] [place], [place] [phone] * (ABNORMAL) Colonoscopy (09/17/2017) Colonoscopy Abnormal(A ) Normal Historical Provider HEALTH MAINTENANCE Edited Result - Final from Last 3 Months or Most Recently Relevant to Health Maintenance Insurance [facility] - [facility] Care Teams Drying Room Operator Relationship Specialty Start Date End Date Clarisse Tucker ANP [address] [place] [phone] PCP - General Family Medicine 04/16/20
--- OUTSIDE RECORDS SUMMARY | 2024-06-21 07:22 | XMS_ITS | Encounter Summary ---
Author Organization [employer] Address [address] [facility] 7t [place] [address] Care Team Providers Care Clerical Administrative Assistant Name Role Phone Ingris Tompkins Primary Care Provider [phone] Encounter Details Date Type Department Care Team (Late st Contact Info) Description 10/06/2022 Orders Only [facility] [address] [place], [place] [phone] Aimee Ocampo LPN Social History Tobacco Use Types Packs/Day Years Used Date Smoking Tobacco: Never Passive Smoke Exposure: Never Smokeless Tobacco: Never Alcohol Use Standard Drinks/Week Comments Never 0 (1 standard drink = 0.6 oz pur e alcohol) Depression Answer Date Recorded Patient Health Questionnaire-2 Score 0 09/23/2022 Comments Unknown Sex and Gender Information Value [...] suspected to have Coronavirus/COVID-19? No / Unsure 09/23/2022 9:02 AM EDT documented as of this encounter Plan of Treatment Upcoming Encounters Date Type Department Care Team (Late st Contact Info) Description 07/07/2024 9:15 AM EDT Office Visit [facility] [address] [place] [address] Ingris Tompkins ANP [address] [place] [address] documented as of this encounter Visit Diagnoses Not on filedocumented in this encounter Care Teams Clerical Administrative Assistant Relationship Specialty Start Date End Date Ingris Tompkins ANP [address] [place] [address] PCP - General Family Medicine 04/16/20 documented as of this encounter
--- OUTSIDE RECORDS SUMMARY | 2024-06-21 07:22 | XMS_ITS | Encounter Summary ---
Author Organization [employer] Address [address] [facility] 7t [place] [address] Care Team Providers Care District Adviser Name Role Phone Ingris Tompkins Primary Care Provider [phone] Encounter Details Date Type Department Care Team (Late st Contact Info) Description 09/08/2022 Orders Only [facility] [address] [place], [place] [phone] Aimee Ocampo LPN Social History Tobacco Use [...] Orientation Straight 02/24/2022 10 :20 AM EDT documented as of this encounter Plan of Treatment Upcoming Encounters Date Type Department Care Team (Late st Contact Info) Description 07/07/2024 9:15 AM EDT Office Visit [facility] [address] [place] [address] Ingris Tompkins ANP [address] [place] [address] documented as of this encounter Visit Diagnoses Not on filedocumented in this encounter Care Teams District Adviser Relationship Specialty Start Date End Date Ingris Tompkins ANP [address] [place] [address] PCP - General Family Medicine 04/16/20 documented as of this encounter
--- OUTSIDE RECORDS SUMMARY | 2024-06-21 07:22 | XMS_ITS | Encounter Summary ---
Author Organization [employer] [facility] Address [address] [facility] 7t [place] [address] Care Team Providers Care Stone Planer Name Role Phone Ingris Tompkins Primary Care Provider [phone] Reason for Visit * Reason Comments Med Refill Encounter Details Date Type Department Care Team (Late st Contact Info) Description 01/29/2023 Refill [facility] [address] [place] [address] [phone] Ingris Tompkins ANP [address] [place] [address] [phone] Pain Social History Tobacco Use Types Packs/Day Years [...] Description 07/07/2024 9:15 AM EDT Office Visit [facility] [address] [place] [phone] Ingris Tompkins ANP [address] [place] [phone] documented as of this encounter Visit Diagnoses Diagnosis Pain Generalized pain documented in this encounter Care Teams Stone Planer Relationship Specialty Start Date End Date Ingris Tompkins ANP [address] [place] [address] PCP - General Family Medicine 04/16/20 documented as of this encounter
--- OUTSIDE RECORDS SUMMARY | 2024-06-21 07:22 | XMS_ITS | Encounter Summary ---
Author Organization [employer] [facility] Address [address] [facility] 7t [place] [address] Care Team Providers Care Sericulture Teacher Name Role Phone Ingris Tompkins Primary Care Provider [phone] Encounter Details Date Type Department Care Team (Latest Contact Info) Description 05/04/2019 Abstract [facility] CONVERSIONS Dental, Provider, DDS Social History Tobacco Use Types Packs/Day Years Used Date Smoking Tobacco: Never Assessed Comments Unknown Sex and Gender Information Value [...] Description 07/07/2024 9:15 AM EDT Office Visit [facility] [address] [place] [address] Ingris Tompkins ANP [address] [place] [address] documented as of this encounter Visit Diagnoses Not on filedocumented in this encounter Care Teams Sericulture Teacher Relationship Specialty Start Date End Date Ingris Tompkins ANP [address] [place] [address] PCP - General Family Medicine 04/16/20 documented as of this encounter
--- OUTSIDE RECORDS SUMMARY | 2024-06-21 07:22 | XMS_ITS | Encounter Summary ---
Author Organization [employer] [facility] Address [address] [facility] 7t [place] [address] Care Team Providers Care Credit Risk Specialist Name Role Phone Ingris Tompkins Primary Care Provider [phone] Encounter Details Date Type Department Care Team (Latest Contact Info) Description 07/30/2018 Abstract [facility] CONVERSIONS Dental, Provider, DDS Social History [...] Description 07/07/2024 9:15 AM EDT Office Visit [facility] [address] [place] [address] Ingris Tompkins ANP [address] [place] [address] documented as of this encounter Visit Diagnoses Not on filedocumented in this encounter Care Teams Credit Risk Specialist Relationship Specialty Start Date End Date Ingris Tompkins ANP [address] [place] [address] PCP - General Family Medicine 04/16/20 documented as of this encounter
--- OUTSIDE RECORDS SUMMARY | 2024-06-21 07:22 | XMS_ITS | Encounter Summary ---
Author Organization [employer] Address [address] [facility] 7t [place] [address] Care Team Providers Care Medical Insurance Claims Processor Name Role Phone Ingris Tompkins Primary Care Provider [phone] Reason for Visit * Reason Comments Med Refill Encounter Details Date Type Department Care Team (Late st Contact Info) Description 01/08/2023 Refill [facility] P[facility]S [address] [place], [place] [phone] Heather Garcias MD [address] [place], [place] [phone] Primary hypertension Social History Tobacco Use Types Packs/Day Years [...] Description 07/07/2024 9:15 AM EDT Office Visit [facility] [address] [place], [place] [phone] Ingris Tompkins ANP [address] [place], [place] [phone] documented as of this encounter Visit Diagnoses Diagnosis Primary hypertension Unspecified essential hypertension documented in this encounter Care Teams Medical Insurance Claims Processor Relationship Specialty Start Date End Date Ingris Tompkins ANP [address] [place] [address] PCP - General Family Medicine 04/16/20 documented as of this encounter
--- OUTSIDE RECORDS SUMMARY | 2024-06-21 07:22 | XMS_ITS | Encounter Summary ---
Author Organization [employer] Address [address] [facility] 7t [place] [address] Care Team Providers Care Elastic Assembler Name Role Phone Ingris Tompkins Primary Care Provider [phone] Reason for Visit * Reason Comments Med Refill Encounter Details Date Type Department Care Team (Late st Contact Info) Description 12/05/2022 Refill [facility] CH[facility] MED & PEDS [address] [place], [place] [phone] Ingris Tompkins ANP [address] [place], [place] [phone] Hypothyroidism, unspecified type Social History Tobacco Use Types Packs/Day Years [...] Description 07/07/2024 9:15 AM EDT Office Visit [facility]ICINE [address] [place], [place] [phone] Ingris Tompkins ANP [address] [place], [place] [phone] documented as of this encounter Visit Diagnoses Diagnosis Hypothyroidism, unspecified type documented in this encounter Care Teams Elastic Assembler Relationship Specialty Start Date End Date Ingris Tompkins ANP [address] [place] [address] PCP - General Family Medicine 04/16/20 documented as of this encounter
[2024-08-03 16:44] VITALS: BMI 29.9
[2024-08-05 09:53] VITALS: BMI 29.1
[2024-08-05 09:57] VITALS: BP 179/81; BP 193/75; PULSE 80; PULSE 82; RESP 16; TEMP 36.2; O2SAT 97
[2024-08-05 10:04] LABS: Glucose, Whole Blood 122 mg/dL (60-115)
[2024-08-05] MEDS: Lactated Ringers 1,000 ML 100 ML IVCONT (10:26)
--- NOTE | 2024-08-05 10:36 | MHC.SHP ---
Pre-Procedural Eval Section A - 24 Hr Update-Section A only Date of Service: 08/05/24 The patient is an INPATIENT: No The patient has been examined within 24 hours of the surgical procedure. The History & Physical has been completed within 30 days and I have reviewed it.: No Section B - Complete if H&P > 30 days Chief Complaint: Surveillance for colon polyps Relevant Family History (Specify if Yes): Yes Relevant Social History: Tobacco Use (former smoker) Present Medications: see Short Stay Collaborative assessment Medical History: Significant History (High cholesterol Diabetes) History of Previous Operations: Relevant previous surgery/procedure and date(s) (Hx of cataract surgery H/O arthroscopic knee surgery H/O colonoscopy) Allergies: Allergies Allergy/AdvReac Type Severity Reaction Status Date / Time No Known Allergies Allergy Verified 08/03/24 16:41 Review of Systems Sugical H&P ROS: Negative: Constitution, Cardiovascular, Respiratory and Gastrointestinal Exam Surgical H&P Exam: Normal: Heart, Normal: Lungs, Normal: Extremities and Normal: Abdomen Plan Diagnosis/Plan: Unchanged I have reviewed the history and physical and performed a pertinent physical examination on my patient. No changes have occurred unless specified. Time Spent With Patient Time: Total time managing care of this patient today ____ minutes.
--- NOTE | 2024-08-05 11:24 | P.CONAN_ITS ---
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) Depression with anxiety (Acute) Hypothyroid (Acute) Diabetes (Acute) High cholesterol (Acute) Hypertension (Acute) Past Medical History Medical History (Updated 08/03/24 @ 16:52 by Charlene Parada, KISHAN) Arthritis Anxiety Wears dentures Diabetes HTN (hypertension) HLD (hyperlipidemia) Hypothyroidism Family History Family History (Updated 03/22/24 @ 10:32 by MELISSA Tolentino) Sister Esophageal cancer Colon cancer Surgical History Surgical History (Updated 08/05/24 @ 10:07 by Mary Madsen RN) History of surgery Hx of cataract surgery H/O arthroscopic knee surgery H/O colonoscopy Social History Social History Are you a primary medicare compliance auditor to a significant other at home: No Do you presently have visiting nurse or other home services: No Patient Tobacco Use Status: Former Tobacco user Use of substances other than those prescribed or required for medical reasons: No Have you been hit, kicked, punched, or otherwise hurt by someone within the past year? If so, by whom?: No Are you DNR?: No Advance Directives: No (will bring dos) Advance Directives Information Provided: Yes Advance Directives on File: No Patient : No : No Poor oral hygiene: No Meds Allergies Allergy/AdvReac Type Severity Reaction Status Date / Time No Known Allergies Allergy Verified 08/03/24 16:41 Home Medications ?Medication ?Instructions ?Recorded ?Confirmed ?Last Taken ?Type atorvastatin 40 mg tablet 40 mg PO DAILY 03/22/24 08/03/24 Unknown History blood sugar diagnostic (FreeStyle #10 ea 03/22/24 Unknown History Lite Strips) calcium 600 mg (as tab PO 03/22/24 Unknown History carbonate)-vitamin D3 5 mcg (200 unit) tablet gabapentin 100 mg capsule 100 mg PO BEDTIME 03/22/24 08/03/24 Unknown History glimepiride 1 mg tablet 1 mg PO DAILY 03/22/24 08/03/24 Unknown History hydrochlorothiazide 25 mg tablet 25 mg PO DAILY 03/22/24 08/03/24 Unknown History lancets 33 gauge (TRUEplus Lancets) #100 ea 03/22/24 Unknown History levothyroxine 50 mcg tablet 50 mcg PO DAILY 03/22/24 08/03/24 08/05/24 History metformin 1,000 mg tablet 1,000 mg PO BID 03/22/24 08/03/24 Unknown History olmesartan 40 mg tablet 40 mg PO DAILY 03/22/24 08/03/24 Unknown History verapamil 240 mg tablet,extended 240 mg PO DAILY 03/22/24 08/03/24 08/05/24 History release omega 8-kji-hns-fish oil 1,000 mg 1 cap PO DAILY 08/03/24 08/03/24 Unknown History (120 mg-180 mg) capsule (Fish Oil) Exam Height,Weight and Vital Signs: Height 5 ft 6 in Weight 83.915 kg Assessment and Plan Assessment Anesthesia Assessment: Chart Reviewed Documented by User: Elisabeth Zamora DO 08/05/24 11:33 [facility] Past Medical History Medical History (Updated 08/03/24 @ 16:52 by Charlene Parada RN) Arthritis Anxiety Wears dentures Diabetes HTN (hypertension) HLD (hyperlipidemia) Hypothyroidism Family History Family History (Updated 03/22/24 @ 10:32 by MELISSA Tolentino) Sister Esophageal cancer Colon cancer Family history of problems with anesthesia: No Surgical History Surgical History (Updated 08/05/24 @ 10:07 by Mary Madsen RN) History of surgery Hx of cataract surgery H/O arthroscopic knee surgery H/O colonoscopy History of Problems with Anesthesia: No Social History Social History Are you a primary medicare compliance auditor to a significant other at home: No Do you presently have visiting nurse or other home services: No Patient Tobacco Use Status: Former Tobacco user Use of substances other than those prescribed or required for medical reasons: No Have you been hit, kicked, punched, or otherwise hurt by someone within the past year? If so, by whom?: No Are you DNR?: No Advance Directives: No (will bring dos) Advance Directives Information Provided: Yes Advance Directives on File: No Patient : No : No Poor oral hygiene: No Meds Allergies Allergy/AdvReac Type Severity Reaction Status Date / Time No Known Allergies Allergy Verified 08/03/24 16:41 Home Medications ?Medication ?Instructions ?Recorded ?Confirmed ?Last Taken ?Type atorvastatin 40 mg tablet 40 mg PO DAILY 03/22/24 08/03/24 Unknown History blood sugar diagnostic (FreeStyle #10 ea 03/22/24 Unknown History Lite Strips) calcium 600 mg (as tab PO 03/22/24 Unknown History carbonate)-vitamin D3 5 mcg (200 unit) tablet gabapentin 100 mg capsule 100 mg PO BEDTIME 03/22/24 08/03/24 Unknown History glimepiride 1 mg tablet 1 mg PO DAILY 03/22/24 08/03/24 Unknown History hydrochlorothiazide 25 mg tablet 25 mg PO DAILY 03/22/24 08/03/24 Unknown History lancets 33 gauge (TRUEplus Lancets) #100 ea 03/22/24 Unknown History levothyroxine 50 mcg tablet 50 mcg PO DAILY 03/22/24 08/03/24 08/05/24 History metformin 1,000 mg tablet 1,000 mg PO BID 03/22/24 08/03/24 Unknown History olmesartan 40 mg tablet 40 mg PO DAILY 03/22/24 08/03/24 Unknown History verapamil 240 mg tablet,extended 240 mg PO DAILY 03/22/24 08/03/24 08/05/24 History release omega 1-fbo-unj-fish oil 1,000 mg 1 cap PO DAILY 08/03/24 08/03/24 Unknown History (120 mg-180 mg) capsule (Fish Oil) Exam Exam Date and Time: 08/05/24 1125 Height,Weight and Vital Signs: Height 5 ft 6 in Weight 83.915 kg Vital Signs Temperature 97.1 F 08/05/24 09:57 Pulse Rate 80 04/11/25 09:57 Respiratory Rate 16 08/05/24 09:57 Blood Pressure 193/75 H 08/05/24 09:57 Pulse Oximetry 97 08/05/24 09:57 Oxygen Delivery Method Room Air 08/05/24 09:57 Temperature 97.1 F 08/05/24 09:57 Pulse Rate 82 08/05/24 09:57 Respiratory Rate 16 08/05/24 09:57 Blood Pressure 179/81 H 08/05/24 09:57 Pulse Oximetry 97 08/05/24 09:57 Oxygen Delivery Method Room Air 08/05/24 09:57 Airway Mallampati Class: II TM Dist: >3cm Neck ROM: Full Denture: Upper Heart: S1S2 Lungs: CTAB Assessment and Plan Assessment Anesthesia Assessment: Anesthesia Plan Discussed and Chart Reviewed Final Anesthetic Review Family History of Problems with Anesthesia: No History of Problems with Anesthesia: No NPO: Yes ASA Class: II Final Preanesthetic Review: No Changes in Pt Med Stat, Meds/Allgs Chart Reviewed, Consent Obtained/Reviewed (mend worker at bedside for translation) and Anes Risks/Benef Reviewed Patient Risk: Low Procedure Risk: Low Anesthetic Plan Anesthetic Plan: MAC: and Agree w/ Assess. and Plan Disposition: Standard PACU
--- NOTE | 2024-08-05 12:14 | HO.OPN-COLON ---
Colonoscopy Operative Note Operative Note Date of Service: 08/05/24 Narrative: COLONOSCOPY TILL CECUM WITH SNARE POLYPECTOMY Pre-op diagnosis: Surveillance for colon polyps, family history of colon cancer. Post-op diagnosis:? Colon polyps, nodule ascending colon, Diverticulosis, hemorrhoids Specimens and Sources: : A- CECAL POLYP B- BX NODULE ASCENDING COLON C- ASCENDING COLON POLYPS D- TRANSVERSE COLON POLYPS E- DESCENDING COLON POLYP F- RECTAL POLYP Endoscopist:? Kaz Payne MD Anesthesia:?MAC Consent: Indications for the procedure and potential complications of bleeding, perforation, reaction to medications and missed diagnosis were discussed with the patient and informed consent was obtained. Instrument: Olympus PCF H 190 L variable stiffness pediatric colonoscope Monitoring: Vital signs and clinical assessment, intermittent blood pressure monitoring, continuous EKG monitoring, Pulse oximetry and Carbon Dioxide monitoring were done throughout the procedure. Please see anesthesia flowsheet. Colon withdrawl time was 23 minutes. Procedure: The patient was placed in the left lateral decubitis position and pre-procedure medications were administered. After a digital rectal examination of the ano-rectum, the video colonoscope was inserted into the rectum and advanced through the colon to the cecum. The colonoscope was slowly withdrawn in a retrograde panoramic fashion and the colon mucosa was carefully examined including a retroflexed view of the rectum. Findings and interventions are described below. Procedure Difficulty: Colon was long and tortuous and there was spasm and some loop formation. Left lower quadrant pressure was applied to intubate the ascending colon Findings: Terminal Ileum: Not evaluated Cecum: A 2-3 mm sessile polyp - removed with a cold snare Ascending Colon: Two 4-5 mm sessile polyps - removed with a cold snare A 1.5 to 2 cms benign apperaing nodule with normal overlying mucosa in the mid AC - biopsies were obtained. Transverse Colon: Three 8-12 mm sessile polyps - removed with a hot snare Descending Colon: Two 4-5 mm sessile polyps - removed with a cold snare. Moderate diverticulosis Sigmoid Colon: Moderate diverticulosis Rectum: A 3-4 mm sessile polyp - removed with a cold snare Ano-rectum: Moderate internal hemorrhoids Colon preparation: Good after copious irrigation. [place] Bowel Preparation Scale Right colon; 2 Transverse colon: 2 Left colon; 2 (0 = Unprepared colon segment with mucosa not seen due to solid stool that cannot be cleared. 1 = Portion of mucosa of the colon segment seen, but other areas of the colon segment not well seen due to staining, residual stool and/or opaque liquid. 2 = Minor amount of residual staining, small fragments of stool and/or opaque liquid, but mucosa of colon segment seen well. 3 = Entire mucosa of colon segment seen well with no residual staining, small fragments of stool or opaque liquid) Impression and Post Procedure Diagnosis: Colonoscopy Findings: Nine small to medium sized polyps were removed Moderate diverticulosis seen in the left colon Moderate hemorrhoids on retroflexed exam. Plan: I will send a letter with biopsy results. Repeat Colonoscopy in 2 years if multiple polyps are adenomatous and 5 years if polyps are hyperplastic (due to history of adenomatous colon polyps and family history of colon cancer). A summary of above findings with relevant handouts were given to the patient in the discharge area.
[2024-08-05 12:19] VITALS: BP 121/56; PULSE 72; RESP 15; TEMP 36.9
[2024-08-05 12:24] VITALS: BP 128/56; PULSE 73; RESP 15; O2SAT 97
[2024-08-05 12:36] VITALS: BP 133/62; PULSE 68; RESP 15; O2SAT 99
[2024-08-05 12:49] VITALS: BP 145/64; PULSE 65; RESP 18; TEMP 36.2; O2SAT 99
== END 2024-08-05 13:11 | disposition home or self-care (01) ==
PROVIDERS: PCP Nurse Practitioner Primary Care; Visit Provider Internal Medicine Gastroenterology
PROC: 0DJD8ZZ Inspection of Lower Intestinal Tract, Via Natural or Artificial Opening Endoscopic (ICD-10-PCS; CPT 45378; principal; 2024-08-05 11:10)
DX: Z12.11 Encounter for screening for malignant neoplasm of colon (principal); Z86.0101 Personal history of adenomatous and serrated colon polyps; Z80.0 Family history of malignant neoplasm of digestive organs; D12.0 Benign neoplasm of cecum; D12.2 Benign neoplasm of ascending colon; D12.3 Benign neoplasm of transverse colon; D12.4 Benign neoplasm of descending colon; K62.1 Rectal polyp; K57.30 Diverticulosis of large intestine without perforation or abscess without bleeding; K64.8 Other hemorrhoids; I10 Essential (primary) hypertension; E78.00 Pure hypercholesterolemia, unspecified; E03.9 Hypothyroidism, unspecified; F32.A Depression, unspecified; E11.9 Type 2 diabetes mellitus without complications; Z79.84 Long term (current) use of oral hypoglycemic drugs; Z79.899 Other long term (current) drug therapy; Z98.890 Other specified postprocedural states; Z87.891 Personal history of nicotine dependence
CPT/HCPCS: 45385; 82947; 88305; J2003; J2250; J2704; J3010

== ENCOUNTER → 2024-08-05 09:39 | Outpatient (BNV) | payer OTHER, SELFPAY | PROVIDERS: PCP Nurse Practitioner Primary Care; Visit Provider Internal Medicine Gastroenterology | DX: Z12.11 Encounter for screening for malignant neoplasm of colon (principal); Z86.0100 Personal history of colon polyps, unspecified; Z80.0 Family history of malignant neoplasm of digestive organs; D12.0 Benign neoplasm of cecum; K57.90 Diverticulosis of intestine, part unspecified, without perforation or abscess without bleeding | CPT/HCPCS: 45380; 45385 ==

== ENCOUNTER 2024-11-15 09:57 | Outpatient (REF) | payer OTHER, SELFPAY ==
--- NOTE | ~2024-11-15 | XR_ITS ---
EXAMINATION: XR ELBOW, RIGHT CLINICAL INFORMATION: atraumatic R elbow pain COMPARISON: None available. TECHNIQUE: AP, lateral, and oblique views of the right elbow. FINDINGS: No acute cortical disruption or malalignment. No lytic or blastic lesions. No joint effusion. No subcutaneous emphysema. XR/XR elbow RT min 3V IMPRESSION: No acute fracture or dislocation. Negative exam. Electronically signed by: Victor Manuel Brice MD 11/15/2024 10:30 AM EDT
--- OUTSIDE RECORDS SUMMARY | 2024-11-15 10:52 | XMS_ITS | Encounter Summary ---
Author Organization [employer] Address [address] [place] [address] Care Team Providers Care Washtub Worker Helper Name Role Phone Ingris Tompkins Primary Care Provider [phone] Encounter Details Date Type Department Care Team (Late Contact Info) Description 09/08/2022 Orders Only [facility] [address] [place], [place] [id number] Aimee Ocampo LPN Social History Tobacco Use [...] Encounters Date Type Department Care Team (Late Contact Info) Description 01/24/2025 11:30 AM EDT Office Visit [facility] [address] [place] [address] Ingris Tompkins ANP [address] [place] [address] documented as of this encounter Visit Diagnoses Not on filedocumented in this encounter Care Teams Washtub Worker Helper Relationship Specialty Start Date End Date Ingris Tompkins ANP [address] [place] [address] PCP - General Family Medicine 04/16/20 documented as of this encounter
[2024-11-15 12:16] LABS: Anion Gap 13 (12-20); Blood Urea Nitrogen 14 mg/dL (9-16); Calcium 9.8 mg/dL (8.4-10.2); Carbon Dioxide 30 mmol/L (22-29); Chloride 103 mmol/L (96-108); Cholesterol 222 mg/dL (<200); Estimated Glomerular Filt Rate > 60; HDL Cholesterol 79 mg/dL (>40); Potassium 3.7 mmol/L (3.3-5.1); Sodium 142 mmol/L (135-145); Triglycerides 163 mg/dL (<150)
== END 2024-11-15 09:58 | disposition home or self-care (01) ==
LOC: HO.HHCX 09:57
PROVIDERS: PCP Nurse Practitioner Primary Care; Visit Provider Nurse Practitioner Primary Care
DX: E11.59 Type 2 diabetes mellitus with other circulatory complications (principal); I15.2 Hypertension secondary to endocrine disorders; E03.9 Hypothyroidism, unspecified; M25.521 Pain in right elbow
CPT/HCPCS: 36415; 73080; 80048; 80061; 82043; 82570; 84443

== ENCOUNTER → 2024-11-15 10:12 | Outpatient (BNV) | payer OTHER, SELFPAY | PROVIDERS: PCP Nurse Practitioner Primary Care; Visit Provider Radiology Diagnostic Radiology | DX: M25.521 Pain in right elbow (principal) | CPT/HCPCS: 73080 ==